=== PATIENT | male | born 1975 | race Caucasian/White ===

== ENCOUNTER 2021-06-08 16:18 | Emergency (ER) | payer MEDICAID ==
[~2021-06-08] VITALS: Ht 180.3 cm; Wt 99.8 kg
--- NOTE | 2021-06-08 16:32 | NUR ---
RIGHT KNEE PAIN/SWELLING AND FEVER LAST NIGHT
--- NOTE | 2021-06-08 16:39 | NUR ---
DR BECKER AT BEDSIDE
--- NOTE | 2021-06-08 16:53 | NUR ---
X RAY AT BEDSIDE
[2021-06-08 17:15] LABS: BASOPHILS % (AUTO) 0.5 % (0.0-2.0); EOSINOPHILS % (AUTO) 0.5 % (0.0-6.0); HEMATOCRIT 45 % (39-51); HEMOGLOBIN 15.3 g/dL (13.5-17.5); LYMPHOCYTES % (AUTO) 21.4 % (20.0-44.0); MEAN CORPUSCULAR HGB CONC 34 g/dl (31.0-36.0); MEAN CORPUSCULAR VOLUME 94 fL (80-96); MONOCYTES # (AUTO) 1.2 K/uL (0.1-1.30); MONOCYTES % (AUTO) 12.4 % (2.0-12.0); NEUTROPHILS # (AUTO) 6.1 K/uL (1.8-8.9); NEUTROPHILS % (AUTO) 65.2 % (43.0-81.0); PLATELET COUNT (AUTO) 190 K/uL (150-450); RED BLOOD CELL COUNT(AUTO) 4.83 MIL/uL (4.5-6.0); WHITE BLOOD COUNT (AUTO) 9.4 K/uL (4.3-11.0)
[2021-06-08] MEDS ORDERED: KETOROLAC TROMETHAMINE INJ 60 MG/2 ML VIAL IM ONE (17:30)
[2021-06-08] MEDS ORDERED: KETOROLAC TROMETHAMINE INJ 30 MG/ML VIAL ONE (17:36)
[2021-06-08 17:45] LABS: CALCIUM, SERUM 8.4 mg/dL (8.5-10.1)
--- NOTE | 2021-06-08 18:06 | NUR ---
ICE APPLIED TO R KNEE, BLANKET PLACED IN BETWEEN TO PROTECT SKIN INTEGRITY. NICOLA WRAP APPLIED TO R KNEE.
[2021-06-08] MEDS ORDERED: IBUP-1955 PO (18:42)
[2021-06-08] MEDS ORDERED: CEPH500T PO (18:42)
[2021-06-08 19:00] VITALS: BP 146/87
--- NOTE | 2021-06-08 19:00 | NUR ---
IV removed. Catheter intact and site benign. Pressure and 4x4 applied to site. No bleeding noted.Patient discharged to home in stable condition. Written and verbal after care instructions given. Patient verbalizes understanding of instruction.
== END 2021-06-08 19:01 | disposition home or self-care (01) ==
LOC: ER 16:24
DX: M70.41 Prepatellar bursitis, right knee (principal); Y93.89 Activity, other specified
CPT/HCPCS: 36415; 73564; 80048; 85025; 85652; 86140; 96372; 99284; J1885

== ENCOUNTER 2022-03-15 16:37 | Emergency (ER) | payer MEDICAID ==
[~2022-03-15] VITALS: Ht 172.7 cm; Wt 99.8 kg
[~2022-03-15 16:37] MED LIST: CEPH500T PO; IBUP-1955 PO
[2022-03-15 17:23] VITALS: BP 149/97
--- NOTE | 2022-03-15 17:28 | NUR ---
BIBS; PER PT, HE TESTED POSITIVE FOR COVID TODAY. REPORTS SOME COUGH BUT OTHERWISE STABLE, NOT IN ACUTE DISTRESS. AFEBRILE.
--- NOTE | 2022-03-15 19:58 | NUR ---
Patient left without being seen by Dr. Felix. VSS. Pt ambulatory.
== END 2022-03-15 21:15 | disposition left against medical advice (07) ==
LOC: ER 16:40
DX: Z53.21 Procedure and treatment not carried out due to patient leaving prior to being seen by health care provider (principal)

== ENCOUNTER 2022-04-15 14:33 | Emergency (ER) | payer MEDICAID ==
[~2022-04-15] VITALS: Ht 175.3 cm; Wt 99.8 kg
[2022-04-15 14:48] VITALS: BP 126/84
[2022-04-15] MEDS ORDERED: POLY10DR OP (15:08)
[2022-04-15] MEDS: FLUORESCEIN SODIUM OPHTH 1 EA STRIP OP ONE (15:14)
[2022-04-15] MEDS ORDERED: FLUORESCEIN SODIUM OPHTH 1 EA STRIP ONE (15:15)
--- NOTE | 2022-04-15 15:30 | NUR ---
Patient discharged to home in stable condition. Written and verbal after care instructions given. Patient verbalizes understanding of instruction.
== END 2022-04-15 15:44 | disposition home or self-care (01) ==
LOC: ER 14:36
DX: S05.02XA Injury of conjunctiva and corneal abrasion without foreign body, left eye, initial encounter (principal); Z86.16 Personal history of COVID-19; Z79.899 Other long term (current) drug therapy; X58.XXXA Exposure to other specified factors, initial encounter; Y93.9 Activity, unspecified; Y92.89 Other specified places as the place of occurrence of the external cause; Y99.8 Other external cause status

== ENCOUNTER 2023-05-06 16:29 | Emergency (ER) | payer MEDICAID, OTHER ==
[~2023-05-06] VITALS: Ht 182.9 cm; Wt 95.3 kg
[~2023-05-06 16:29] MED LIST changes: +POLY10DR OP
[2023-05-06 17:30] VITALS: BP 140/69; TEMP 98.2; O2SAT 100
[2023-05-06] MEDS ORDERED: AMOX-430 PO (17:51)
[2023-05-06] MEDS ORDERED: TDAP [DIPH/PERTUSSIS/TET] 0.5 ML VIAL IM ONE ×2 (18:00→18:25)
== END 2023-05-06 18:40 | disposition home or self-care (01) ==
LOC: ER 16:29
DX: S61.250A Open bite of right index finger without damage to nail, initial encounter (principal); Z86.16 Personal history of COVID-19; W53.21XA Bitten by squirrel, initial encounter; Y93.89 Activity, other specified; Y92.89 Other specified places as the place of occurrence of the external cause; Y99.8 Other external cause status
CPT/HCPCS: 90715